=== PATIENT | male | born 1950 | race Caucasian/White ===

== ENCOUNTER 2016-07-10 07:31 | Emergency (ER) | payer OTHER ==
[~2016-07-10] VITALS: Ht 172.7 cm; Wt 95.0 kg
[~2016-07-10 07:31] MED LIST: AMLO1CAP15 PO; DOCU-144 PO; FINA5TAB4 PO; FLOMAX; GABA300C16 PO; HYDR-3498 PO; HYDR25TA6 PO; INSULIN SC; METF500T PO; OMEP40CA6 PO; ONDA-43 PO; SITA100T8 PO
[2016-07-10 07:33] VITALS: Ht 172.7 cm; Wt 95.0 kg
[2016-07-10] MEDS ORDERED: SOD CHLORIDE 0.9% 1,000 ML IV STA (07:57)
[2016-07-10] MEDS ORDERED: ONDANSETRON 4 MG INJ IV STA (07:57)
[2016-07-10] MEDS ORDERED: morphine 4 MG/ML VIAL IV STA (07:57)
--- NOTE | 2016-07-10 08:19 | RADRPT ---
PROCEDURE: XR Chest. CLINICAL INDICATION: Right-sided abdominal pain. TECHNIQUE: Single frontal chest x-ray. COMPARISON: Chest radiograph 12/13/2015. FINDINGS: The cardiomediastinal silhouette is unremarkable. Aortic atherosclerotic vascular calcifications are identified. Subsegmental atelectasis is noted in the left mid and lower lung zones. Eventration of the right he midiaphragm is noted. No pneumothorax, pleural effusion or consolidation is seen. No acute osseous abnormality is noted. IMPRESSION: 1. Subsegmental atelectasis is noted in the left mid and lower lung zones. 2. Aortic atherosclerosis. 3. Otherwise no acute cardiopulmonary abnormality. RPTAT: HH .Jo-Ann Jeffrey MD, MD Date Time Electronically viewed and signed by .Jo-Ann Jeffrey MD, on 07/10/2016 08:19 .N/
[2016-07-10 08:31] LABS: ALBUMIN 4.5 g/dl (3.3-4.9)
[2016-07-10 08:34] LABS: ALBUMIN/GLOBULIN RATIO 1.25; BILIRUBIN,INDIRECT 0.4 mg/dl (0-1.1); BILIRUBIN,TOTAL 0.4 mg/dl (0.2-1.3); CALCIUM 9.6 mg/dl (8.4-10.2); CREATININE 1.18 mg/dl (0.61-1.24); TOTAL PROTEIN 8.1 g/dl (6.1-8.1)
[2016-07-10 08:36] LABS: BASOPHILS % 0.3 % (0.0-2.0); EOSINOPHILS # 0.3 10^3/ul (0.0-0.5); EOSINOPHILS % 5.3 % (0.0-7.0); HEMATOCRIT 39.3 % (42.0-52.0); HEMOGLOBIN 13.7 g/dl (14.0-18.0); LYMPHOCYTES # 1.3 10^3/ul (0.8-2.9); MEAN CORPUSCULAR HEMOGLOBIN 29.4 pg (29.0-33.0); MEAN CORPUSCULAR HGB CONC 34.8 g/dl (32.0-37.0); MEAN CORPUSCULAR VOLUME 84.4 fl (82.0-101.0); MEAN PLATELET VOLUME 7.9 fl (7.4-10.4); MONOCYTE # 0.3 10^3/ul (0.3-0.9); MONOCYTES % 5.5 % (0.0-11.0); NEUTROPHIL # 3.8 10^3/ul (1.6-7.5); NEUTROPHILS % 65.9 % (39.0-77.0); PLATELET COUNT 210 10^3/UL (140-440); RED BLOOD COUNT 4.65 10^6/ul (4.70-6.10); RED CELL DISTRIBUTION WIDTH 15.2 % (11.5-14.5); UNCORRECTED WBC 5.8 10^3/ul (4.8-10.8); WHITE BLOOD COUNT 5.8 10^3/ul (4.8-10.8)
[2016-07-10 08:40] LABS: CONDITION 1; LH ANALYZER COMMENTS 1
[2016-07-10 08:48] LABS: ADD UMIC NO; URINE BILIRUBIN (Dip) NEGATIVE (NEGATIVE); URINE BLOOD (Dip) NEGATIVE (NEGATIVE); URINE COLOR LT. YELLOW (YELLOW); URINE GLUCOSE (Dip) NEGATIVE (NEGATIVE); URINE KETONES (Dip) NEGATIVE (NEGATIVE); URINE LEUKOCYTE ESTERASE (Dip) NEGATIVE (NEGATIVE); URINE NITRITE (Dip) NEGATIVE (NEGATIVE); URINE TOTAL PROTEIN (Dip) NEGATIVE (NEGATIVE); URINE UROBILINOGEN (Dip) 0.2 E.U./dL (0.1-1.0)
--- NOTE | 2016-07-10 08:50 | ERD ---
ER Documentation Chief Complaint Date/Time DATE: 07/10/16 TIME: 08:49 Chief Complaint R flank pain since last night; Hx of hernia surgery 01/2016 HPI 66-year-old male. [employer] use. Patient presents with right flank pain. The patient states that he had a hernia surgery in December or January of this past year and all of you. He states a prior nephrectomy on the right side 8 years ago. States that since he had his surgery in December or January he has had right flank pain radiating up to his right back. He only is seen his surgeon to have sutures removed but has not seen them symptoms. He denies any fevers or chills , no nausea vomiting or diarrhea. Pain is moderate to severe and constant. He denies any bowel or bladder incontinence and/or retention. ROS All systems reviewed and are negative except as per history of present illness. Medications Home Meds Active Scripts Ondansetron Hcl* (Zofran*) 4 Mg Tab, 4 MG PO Q6H Y for NAUSEA AND OR VOMITING for 1 Day, TAB Prov:JALEN WILKINS MD 12/15/15 Docusate Sodium* (Colace*) 100 Mg Capsule, 100 MG PO DAILY, #30 CAP Prov:JALEN WILKINS MD 12/15/15 Hydrocodone Bit/Acetaminophen (Anexsia 5-325 Mg Tablet) 1 Tab Tablet, 1 TAB PO Q4H Y for PAIN LEVEL 4-7 for 1 Day, TAB Prov:JALEN WILKINS MD 12/15/15 Reported Medications [Insulin] No Conflict Check, SC DAILY 11/11/15 Gabapentin* (Gabapentin*) 300 Mg Capsule, 300 MG PO BID, #60 CAP 11/11/15 Metformin Hcl (Glucophage) 500 Mg Tablet, 500 MG PO DAILY, #90 TAB 11/11/15 Omeprazole* (Omeprazole*) 40 Mg Capsule.dr, 40 MG PO QAM, #30 CAP 11/11/15 Finasteride* (Finasteride*) 5 Mg Tablet, 5 MG PO DAILY, TAB 11/11/15 Sitagliptin* (Januvia*) 100 Mg Tablet, 100 MG PO DAILY, #30 TAB 11/11/15 Amlodipine-Benazepril (Amlodipine-Benazepril) 10-40 Mg Capsule, 1 TAB PO DAILY, #30 TAB 11/11/15 [Flomax] No Conflict Check 04/05/13 Hydrochlorothiazide (Hydrochlorothiazide) 25 Mg Tablet, 25 MG PO 04/05/13 Allergies Allergies: Coded Allergies: No Known Allergy (Unverified , 11/11/15) PMhx/Soc History of Surgery: Yes (S/P VENTRAL HERNIA REPAIR 12-12-15) Anesthesia Reaction: No Hx Neurological Disorder: No Hx Respiratory Disorders: No Hx Cardiac Disorders: Yes (HTN) Hx Psychiatric Problems: No Hx Miscellaneous Medical Probl: Yes (HTN, DM, CKD STAGE III) Hx Alcohol Use: No Hx Substance Use: No Hx Tobacco Use: No Smoking Status: Never smoker Physical Exam Vitals Vital Signs Date Time Temp Pulse Resp B/P Pulse Ox O2 Delivery O2 Flow Rate FiO2 07/10/16 07:33 97.3 115 24 150/85 98 Physical Exam General: Well developed, well nourished, no acute distress Head: Normocephalic, atraumatic. Eyes: Pupils equally reactive, EOM intact ENT: Moist mucous membranes Neck: Supple, no lymphadenopathy Respiratory: Lungs clear bilaterally, no distress Cardiovascular: RRR, no murmurs, rubs, or gallops Abdominal: Soft, non-tender, non-distended, no peritoneal signs, right abdominal surgical scar is well-appearing, no obvious hernia : Deferred MSK: No edema, no unilateral swelling, 5/5 strength Neurologic: Alert and oriented, moving all extremities, normal speech, no focal weakness, no cerebellar signs Skin: No rash Psych: Normal mood Result Diagram: 07/10/16 0804 07/10/16 0804 Results 24 hrs Laboratory Tests Test 07/10/16 08:04 Alanine Aminotransferase (ALT/SGPT) 44IU/L Albumin 4.5g/dl Albumin/Globulin Ratio 1.25 Alkaline Phosphatase 60IU/L Anion Gap 19 Aspartate Amino Transf (AST/SGOT) 35IU/L Basophils # 0.010^3/ul Basophils % 0.3% Blood Morphology Comment Blood Urea Nitrogen 16mg/dl Calcium Level 9.6mg/dl Carbon Dioxide Level 27mmol/L Chloride Level 102mmol/L Creatinine 1.18mg/dl Direct Bilirubin 0.00mg/dl Eosinophils # 0.310^3/ul Eosinophils % 5.3% Globulin 3.60g/dl Glucose Level 173mg/dl Hematocrit 39.3% Hemoglobin 13.7g/dl Indirect Bilirubin 0.4mg/dl Lipase 178U/L Lymphocytes # 1.310^3/ul Lymphocytes % 23.0% Mean Corpuscular Hemoglobin 29.4pg Mean Corpuscular Hemoglobin Concent 34.8g/dl Mean Corpuscular Volume 84.4fl Mean Platelet Volume 7.9fl Monocytes # 0.310^3/ul Monocytes % 5.5% Neutrophils # 3.810^3/ul Neutrophils % 65.9% Nucleated Red Blood Cells # 0.010^3/ul Nucleated Red Blood Cells % 0.0/100WBC Platelet Count 23223^3/UL Potassium Level 4.0mmol/L Red Blood Count 4.6510^6/ul Red Cell Distribution Width 15.2% Sodium Level 144mmol/L Total Bilirubin 0.4mg/dl Total Protein 8.1g/dl Urine Bilirubin NEGATIVE Urine Clarity CLEAR Urine Color LT. YELLOW Urine Glucose NEGATIVE% Urine Hemoglobin NEGATIVE Urine Ketones NEGATIVE Urine Leukocyte Esterase NEGATIVE Urine Nitrite NEGATIVE Urine Specific [place] <=1.005 Urine Total Protein NEGATIVE Urine Urobilinogen 0.2 E.U./dL Urine pH 6.0 White Blood Count 5.810^3/ul Current Medications Medications (Trade) Dose Ordered Sig/Alberto Route PRN Reason Start Time Stop Time Status Last Admin Dose Admin Sodium Chloride (NS) 1,000 ml @ 1,000 mls/hr Q1H STAT IV 07/10/16 07:57 07/10/16 08:56 DC 07/10/16 08:17 Morphine Sulfate (morphine) 4 mg ONCE STAT IV 07/10/16 07:57 07/10/16 07:59 DC 07/10/16 08:17 Ondansetron HCl (Zofran Inj) 4 mg ONCE STAT IV 07/10/16 07:57 07/10/16 07:59 DC 07/10/16 08:17 Procedures/MDM EKG, MONITORS, & DIAGNOSTIC IMAGING: CT abdomen and pelvis IMPRESSION: 1. Mild atelectasis at the lung bases posteriorly. 2. Gallstones in the gallbladder. No evidence of cholecystitis. 3. Status post right nephrectomy. 4. Atherosclerosis. 5. Diverticulosis of the colon without evidence of diverticulitis. 6. Enlarged prostate. 7. Mild degenerative changes of the spine. Chest x-ray: I reviewed and interpreted a 1 view of the chest Mediastinum: No enlargement Cardiac silhouette: No cardiomegaly Airspace: Clear lung benoti bilaterally without evidence of pneumothorax Bones: No evidence of fracture LAB INTERPRETATION: No significant leukocytosis, no hepatobiliary obstruction MEDICAL DECISION MAKING: The patient has had at least 6 months of right-sided abdominal and back pain. Unclear etiology however it appears to be temporally related to the patient's surgical intervention. Consider possible nerve injury versus radiculopathy. No evidence of shingles. No signs or symptoms concerning for bowel obstruction , abscess or acute testicular process. Using an stop attacher, I attempted to explain to the patient that he needs to follow-up with his primary care physician as well as the surgeon who performed the surgery. I may not have an answer for him this evening given the chronicity of his symptoms. We will attempt to rule out acute life-threatening causes of his pain. ER COURSE: The patient's laboratory testing and diagnostic imaging is unrevealing at this time. The patient will be referred to his primary care physician. He was also advised to follow-up at all of you with his surgeon. Return precautions for fevers or worsening pain was discussed. Patient may benefit from MRI imaging if symptoms persist. No evidence of cauda equina or cord compression. I kept the patient and/or family informed of laboratory and diagnostic imaging results throughout the emergency room course. DISPOSITION PLAN: We discussed follow up with the patient's primary care doctor within 24 to 48 hours as needed. We also discussed return to the emergency room for worsening symptoms or worsening condition. Discharge Medications: [place], Zofran We discussed the use of narcotics including avoidance of operating heavy machinery and driving as well as its addictive properties. Departure Diagnosis: Primary Impression: Right flank pain Additional Impression: Right lower quadrant abdominal pain Condition: SHANEL Brown MD Jul 10, 2016 08:50
--- NOTE | 2016-07-10 09:24 | RADRPT ---
PROCEDURE: CT Abdomen and Pelvis without contrast. CLINICAL INDICATION: Abdominal and pelvic pain. Right flank pain. History of right nephrectomy. TECHNIQUE: CT scan of the abdomen and pelvis without contrast was performed. Coronal and sagittal reformatted images were obtained from the axial source images. Images were reviewed on a high-resolu [employer] PACS workstation. Total exam DLP is 1323.15 mGy-cm. CTDIvol is 19.26 mGy. One or more of the following dose reduction techniques were used: Automated exposure control, adjustment of the mA and/ or kV according to patient size, use of iterative reconstruction technique. COMPARISON: CT scan of the abdomen and pelvis dated 04/09/2015. FINDINGS: There is mild atelectasis at both lung bases posteriorly. The lung bases are otherwise normal. The heart size is normal. There is no pleural effusion or pericardial effusion. The liver is normal in size and attenuation. There is no focal hepatic lesion. Gallstones are present in the gallbladder. There is no evidence of cholecystitis. The bile ducts a re normal. The spleen is normal in size. There is no focal splenic lesion. Both adrenals are normal with no enlargement or mass. The pancreas is unremarkable with no mass or evidence of pancreatitis. The right kidney is surgically absent with surgical clips noted in the right renal bed. There is no mass or fluid collection at this site. The left kidney is normal with no hydronephrosis, mass, or calculus. The left ureter is also normal with no dilatation or calculus. The abdominal aorta is not dilated. There is calcification in the aorta consistent with atheroscler osis. There is no retroperitoneal lymphadenopathy or mass. There is no pelvic lymphadenopathy or mass. The bladder is unremarkable. The prostate is enlarged. The periappendiceal region is unremarkable with no evidence of appendicitis. The appendix is well se en and appears unremarkable. There is diverticulosis of the colon without evidence of diverticulitis. The bowel and mesentery ar e otherwise normal. There is no free fluid or free gas. There are mild degenerative changes of the spine. There is no fracture or lytic lesion. IMPRESSION: 1. Mild atelectasis at the lung bases posteriorly. 2. Gallstones in the gallbladder. No evidence of cholecystitis. 3. Status post right nephrectomy. 4. Atherosclerosis. 5. Diverticulosis of the colon without evidence of diverticulitis. 6. Enlarged prostate. 7. Mild degenerative changes of the spine. RPTAT: QQ .Denny Holly MD, Date Time Electronically viewed and signed by .Denny Holly MD, on 07/10/2016 09:23 .R/
[2016-07-10] MEDS ORDERED: HYDR-902 PO (09:37)
[2016-07-10] MEDS ORDERED: ONDA4TAB14 PO (09:37)
[2016-07-10 09:49] VITALS: BP 117/82; PULSE 74; RESP 20; TEMP 98
== END 2016-07-10 09:52 | disposition home or self-care (01) ==
LOC: E/R 07:31
DX: R10.9 Unspecified abdominal pain (principal); R10.31 Right lower quadrant pain; I12.9 Hypertensive chronic kidney disease with stage 1 through stage 4 chronic kidney disease, or unspecified chronic kidney disease; N18.3 Chronic kidney disease, stage 3 (moderate); E11.9 Type 2 diabetes mellitus without complications; Z79.84 Long term (current) use of oral hypoglycemic drugs
CPT/HCPCS: 36415; 71010; 74176; 80053; 81003; 83690; 85025; 96374; 96375; 99285; J2270; J2405; J7030

== ENCOUNTER 2016-07-28 12:36 | Outpatient (CLI) | payer OTHER ==
[~2016-07-28] VITALS: Ht 177.8 cm; Wt 95.5 kg
[~2016-07-28 12:36] MED LIST changes: +HYDR-902 PO; +ONDA4TAB14 PO
[2016-07-28 13:07] VITALS: BP 124/65; PULSE 75; RESP 18; Ht 177.8 cm; Wt 95.5 kg
[2016-07-28] MEDS ORDERED: TAMS0.4C2 PO (13:14)
[2016-07-28] MEDS ORDERED: AMLO1CAP2 PO (13:14)
[2016-07-28] MEDS ORDERED: CALC-42 PO (13:14)
--- NOTE | 2016-07-28 16:37 | CONS ---
DATE OF ADMISSION: 07/28/2016 DATE OF CONSULTATION: 07/28/2016 [facility] SUBSEQUENT OUTPATIENT CONSULTATION PLACE OF SERVICE: [facility] DATE: 07/28/2016. Dear Dr. Banks: Thank you very much for allowing us to remain involved in the care of Mr. Irving Nicolas. HISTORY OF PRESENT ILLNESS: The patient is a very pleasant 66-year-old gentleman well known to me from our initial visit with him as early July 2015 for treatment of a large right-sided flank hernia that he eventually had a repair for in December 2015 with subsequent followup visits with me. This was in conjunction with Dr. Balderrama who had originally seen him for surgical issues. He also has comorbidities that are multiple and include hypertension, prior kidney disease requiring surgery that led to the hernia on the right side, diabetes, history of rectal bleeding and a number of other issues. He was noted to have cholelithiasis that may have been symptomatic, but because of the use of mesh during his hernia repair we elected not to take his gallbladder out in order to minimize chance of infection. I had talked to him and family about possibly removing the gallbladder at a later time if the pain persisted. The patient continues to have vague abdominal pain, some of which can be explained by the incisional hernia that he had on the right side and the presence of current mesh and his relatively recent repair. Some of his pain; however, could come from his gallbladder and for this reason, he was sent to us for reevaluation. Note that he was recently evaluated at an emergency department at [facility] for pain and a CT scan of the abdomen and pelvis was done which showed presence of stone in the gallbladder and recommendation was made for the patient to arrange for an outpatient evaluation. That is the reason why the patient is here. Incidentally, the right incisional hernia repair is holding very well and there is no evidence of any recurrence. I had a chance to meet the patient today and reviewed his history and physical, again completely. He does not have any other major complaints than stated above. No major issues with appetite or weight loss, difficulty with breathing or swallowing, issues with blood in the stool or urine or other major problems. PAST MEDICAL HISTORY: 1. Incisional hernia from a right nephrectomy, status post repair 12/12/2015 with mesh. 2. Hypertension. 3. Diabetes mellitus. 4. History of rectal bleeding. 5. History of small sigmoid colon polyp removed 04/05/2013 which was benign. 6. Internal hemorrhoids. 7. Arthritis. 8. History of left-sided chest pain evaluated 03/07/2011 at [facility]. 9. History of renal insufficiency. 10. BMI 30.2, (previously 29.9 in July 2015). PAST SURGICAL HISTORY: 1. Status post right nephrectomy with possible renal cell carcinoma leading to complication of an incisional hernia that was repaired subsequently as above. 2. Colonoscopy with polyp removal as above 03/27/2011. ALLERGIES: NO KNOWN DRUG ALLERGIES. MEDICATIONS: The patient has been on: 1. Januvia. 2. Tamsulosin. 3. Hydrochlorothiazide. 4. Amlodipine. 5. An updated list shows addition of Vitamin D. 6. Calcium tablets. 7. Gabapentin. SOCIAL HISTORY: The patient lives with his family and does not report any smoking, drinking, or intravenous drug use. FAMILY HISTORY: Other than diabetes and hypertension. There are no other significant medical, surgical or oncologic issues in the family as reported by the patient or reflected in his chart. REVIEW OF SYSTEMS: Other than the above-mentioned, there are no other pertinent positives or pertinent negatives in a complete 14-point review of systems. PHYSICAL EXAMINATION: GENERAL: The patient appears to be a very pleasant gentleman of descent, appearing stated age, sitting in a chair comfortably and in no acute distress. VITAL SIGNS: Stable with the exception of slightly high blood pressure at 124/ 65. He is afebrile and his BMI is 30.2. HEENT: Normocephalic and atraumatic. Extraocular muscles and hearing are grossly intact bilaterally and symmetrically. Sclerae are nonicteric. Oral cavity is clear; oral mucosa appeared to be pink and moist. Dentition: fair. NECK: Supple. There is no lymphadenopathy or JVD. There is no submental, submandibular or supraclavicular lymphadenopathy. CHEST: Rises symmetrically with each breath; patient is breathing comfortably. There are no audible wheezes, rales or rhonchi on the gross exam. HEART: HPulse is regular and palpable on the *right wrist. Capillary refill was normal. Carotid pulses are palpable bilaterally and symmetrically in the neck. EXTREMITIES: Lower extremities contain no pitting edema around the ankles bilaterally and symmetrically. ABDOMEN: Soft, nontender and nondistended. There is some mild tenderness in the right flank area near the most lateral corner of the incision. He has no evidence of recurrence of hernia. There is mild discomfort in the right upper quadrant and minimal discomfort in other quadrants as well. SKIN: Appears to be pink and feels warm to touch. NEUROLOGIC: Awake, alert, and follows commands appropriately. LABORATORY DATA: Dated 07/10/2016 shows normal CBC with platelet count 210. Electrolytes were also normal. Albumin 4.5, lipase 178. CO2 27, creatinine 1.18. IMAGING: CT scan of abdomen and pelvis 07/10/2016 showed above-mentioned findings without other pertinent points. ASSESSMENT AND PLAN: A very pleasant 66-year-old gentleman with multiple issues including BMI of 31.8 and prior right nephrectomy for possible renal cell carcinoma that then was complicated by an incisional hernia that was repaired 07/2015 with an open approach and mesh, diabetes mellitus, hypertension , and a number of other medical problems who shows signs of abdominal pain, which is likely multifactorial. Certainly part of his pain is due to his incisional hernia repair as these flank incisions and repairs typically generate chronic pain syndromes that could last up to a few years at that time. Fortunately, there is no evidence of any hernia or any other major difficulty , including infection in this region and I therefore do not see any indication for surgical intervention for that. Otherwise, the patient's pain could also come from his gallbladder with a known stone and biliary colic symptoms. I believe that we can perform this operation with reasonably the low risk and for this reason, we could eliminate this from the clinical picture and help further delineate the patient's abdominal pain symptoms. I do not see a need for further workup including endoscopy, and I believe that at this point it would be safe for us to perform this operation. I explained the operation in detail including the risks, benefits and alternatives, and obtained the patient's permission to do the operation. I answered all the patient's and 's questions to the best of my ability and I believe that they understand and wished to proceed. Towards the end of the visit the patient noted that he had recently been having issues with a testicular mass and this was news to me and for this reason, I recommended that we have the patient followup with a urologist as well to get a better understanding of whether he needs any further workup or further coordination of care, perhaps to do the surgeries in a combined fashion. I answered all the patient's questions to the best of my ability and answered his 's questions as well. I believe that they both understand and wished to proceed. With above assessment I have recommended the followin. Preoperative history and physical. 2. Urology consultation regarding testicular mass. 3. Appropriate coordination between urology and general surgery if needed. 4. To the operating room for laparoscopic, possible open cholecystectomy in the next few weeks on an elective basis. Thank you again for allowing us to remain in the care of this very pleasant gentleman and his wonderful family. If there are any questions, please feel free to call me at [phone]. TOTAL VISIT TIME: 45 minutes of which more than half was spent in [id number] discussion with the patient as well as coordination of care between multiple physicians and providers. Dictated By: COREY VILLARREAL/YOLY Conf#: [id number] DID#: [id number] CC: NOEL BANKS MD; MAYI MURRAY MD; GALDINO BALDERRAMA MD; RUTH ANN JHA MD;* EndCC* MTDD
== END 2016-07-28 16:27 | disposition home or self-care (01) ==
LOC: HPC 12:36
PROVIDERS: ATTEND Transplant Surgery
DX: K43.2 Incisional hernia without obstruction or gangrene (principal); K80.20 Calculus of gallbladder without cholecystitis without obstruction; E11.9 Type 2 diabetes mellitus without complications; I10 Essential (primary) hypertension; N50.9 Disorder of male genital organs, unspecified
CPT/HCPCS: G0463

== ENCOUNTER 2016-08-13 06:51 | Day surgery (SDC) | payer OTHER ==
[~2016-08-13] VITALS: Ht 175.3 cm; Wt 90.3 kg
[~2016-08-13 06:51] MED LIST changes: -AMLO1CAP15 PO; +AMLO1CAP2 PO; +CALC-42 PO; -DOCU-144 PO; -FINA5TAB4 PO; -FLOMAX; -HYDR-3498 PO; -HYDR-902 PO; -INSULIN SC; -OMEP40CA6 PO; -ONDA-43 PO; -ONDA4TAB14 PO; +TAMS0.4C2 PO
[2016-08-13] MEDS ORDERED: ACET-141 PO (07:37)
[2016-08-13 07:41] VITALS: Ht 175.3 cm; Wt 90.3 kg
[2016-08-13] MEDS ORDERED: EPHEDrine SULFATE 50 MG/5 ML SYG ONE (08:39)
[2016-08-13] MEDS ORDERED: PROPOFOL 40 ML ONE (08:39)
[2016-08-13] MEDS ORDERED: MIDAZOLAM 1 MG/ML 2 ML INJ ONE ×2 (08:39)
[2016-08-13 08:41] VITALS: BP 118/68; PULSE 82; RESP 18
[2016-08-13 09:55] VITALS: BP 116/75; PULSE 68; RESP 15
--- NOTE | 2016-08-13 11:01 | GILP ---
DATE OF PROCEDURE: NAME OF PROCEDURES: Colonoscopy and biopsy. SURGEON: Garth Rivera MD PREOPERATIVE DIAGNOSIS: Change in bowel habit. POSTOPERATIVE DIAGNOSES 1. Colonoscopy all the way to the cecum. 2. Three small colon polyps were removed using the biopsy forceps. 3. Internal hemorrhoids. INDICATION FOR THE PROCEDURE: Mr. Irving Pearce is a 66-year-old male patient who had change in the bowel habit. The patient had colonoscopy before but the exam was very suboptimal simone use of the poor preparation, so the patient was rescheduled for repeat colonoscopy. The procedure and possible complications were well explained to the patient. The patient understood and consented to the procedure. DESCRIPTION OF PROCEDURE: Under the influence of anesthesia, the colonoscope was carefully introduc ed in the rectum and under direct vision, it was advanced all the way to the cecum. FINDINGS: The patient had 3 small colon polyps, one in the sigmoid colon, another 2 in the rectum a nd they were removed using the biopsy forceps. The patient was noted to have internal hemorrhoids. He tolerated the procedure very well and there was no complication from the procedure. At the end o f the procedure, he was awake with stable vital signs and he was discharged home to the care of his family. IMPRESSION: 1. Colonoscopy all the way to the cecum. 2. Three small colon polyps were removed using the biopsy forceps. 3. Internal hemorrhoids. PLAN: 1. Await histopathology report. 2. Next screening colonoscopy in 5 years. Dictated By: GARTH BEAL/YOLY Conf#: [id number] DID#: [id number]
== END 2016-08-13 10:15 | disposition home or self-care (01) ==
LOC: GIL 06:51
PROVIDERS: ATTEND Internal Medicine Gastroenterology
DX: R19.4 Change in bowel habit (principal); D12.5 Benign neoplasm of sigmoid colon; K64.8 Other hemorrhoids; I10 Essential (primary) hypertension; E11.9 Type 2 diabetes mellitus without complications
CPT/HCPCS: 45380; 82962; 88305; J2250

== ENCOUNTER 2016-09-23 06:45 | Day surgery (SDC) | payer OTHER ==
[2016-09-22 16:00] VITALS: Ht 177.8 cm; Wt 93.0 kg
[~2016-09-23] VITALS: Ht 177.8 cm; Wt 93.0 kg
[2016-09-23] VITALS (17 sets, daily range): BP systolic 96–135; BP diastolic 64–75; PULSE 62–88; RESP 14–21
[~2016-09-23 06:45] MED LIST changes: +ACET-141 PO; -TAMS0.4C2 PO
[2016-09-23] MEDS ORDERED: D5W-0.45 NACL + KCL 20 MEQ 1,000 ML IV SCH (07:00)
[2016-09-23] MEDS ORDERED: AMPICILLIN/SULB 3 GM/NS (PMX) 100 ML IVPB ONE (07:00)
[2016-09-23] MEDS ORDERED: BUPIVACAINE 0.25% (MPF) 30 ML INJ ONE (08:29)
[2016-09-23] MEDS ORDERED: BUPIVACAINE 0.25%/EPI (SDV) 30 ML INJ INJ ONE (09:15)
[2016-09-23] MEDS ORDERED: BUPIVACAINE 0.25%/EPI (SDV) 30 ML INJ ONE (09:16)
[2016-09-23] MEDS ORDERED: ROCURONIUM 50 MG INJ ONE (09:22)
[2016-09-23] MEDS ORDERED: CEFAZOLIN 1 GM INJ ONE (09:22)
[2016-09-23] MEDS ORDERED: LIDOCAINE 2% (SDV) 5 ML INJ ONE (09:22)
[2016-09-23] MEDS ORDERED: PROPOFOL 20 ML ONE (09:22)
[2016-09-23] MEDS ORDERED: FENTAnyl 50 MCG/ML VIAL ONE (09:23)
[2016-09-23] MEDS ORDERED: ACETAMINOPHEN 1000MG/100ML IV 100 ML ONE (09:24)
[2016-09-23] MEDS ORDERED: INSULIN ASPART [NOVOLOG] 3 ML PEN SC ONE (09:30)
[2016-09-23] MEDS ORDERED: ONDANSETRON 4 MG INJ IV PRN (09:30)
[2016-09-23] MEDS ORDERED: MEPERIDINE 25 MG INJ IV PRN (09:30)
[2016-09-23] MEDS ORDERED: EPHEDrine SULFATE 50 MG/5 ML SYG IV PRN (09:30)
[2016-09-23] MEDS ORDERED: hydrALAzine 20 MG INJ IV PRN (09:30)
[2016-09-23] MEDS ORDERED: HYDROmorphONE (0.2 MG/ML) 10ML SYG IV PRN ×3 (09:30)
[2016-09-23] MEDS ORDERED: LABETALOL HCL 20MG INJ IV PRN (09:30)
[2016-09-23] MEDS ORDERED: FENTAnyl 50 MCG/ML VIAL IV PRN ×3 (09:30)
--- NOTE | 2016-09-23 09:51 | HPN ---
Date/Time of Note Date/Time of Note DATE: 09/23/16 TIME: 09:51 Interval H&P Admission Note Pt. seen H&P reviewed: No system changes Pt. seen H&P reviewed. No system changes (I attest that I have seen and examined the patient and reviewed the operation in detail, as well as its risks , benefits and alternatives of the operation). I attest that I have seen and examined the patient and reviewed in detail the operation, and its associated risks, benefits and alternative. I have answered all the patient's questions to the best of my ability and the patient wishes to proceed. Please refer to rest of electronic medical record for additional updates. COREY ALVARADO M.D. Sep 23, 2016 09:51
[2016-09-23] MEDS ORDERED: DEXTROSE 50% 50 ML SYRINGE IV PRN ×2 (10:00)
[2016-09-23] MEDS ORDERED: GLUCAGON 1 MG INJ IM PRN (10:00)
[2016-09-23] MEDS ORDERED: GLUCOSE GEL 15 GRAM TUBE BUCCAL PRN (10:00)
[2016-09-23] MEDS ORDERED: GLUCOSE GEL 15 GRAM TUBE PO PRN ×2 (10:00)
[2016-09-23] MEDS ORDERED: PHENYLephrine (100 MCG/ML) 5ML SYG ONE (10:05)
[2016-09-23] MEDS ORDERED: LABETALOL HCL 20MG INJ ONE (10:35)
[2016-09-23] MEDS ORDERED: DEXAMETHASONE 4 MG/ML 1 ML INJ ONE (11:16)
[2016-09-23] MEDS ORDERED: GLYCOPYRROLATE 0.4 MG INJ ONE (11:18)
[2016-09-23] MEDS ORDERED: NEOSTIGMINE 3 MG/3 ML SYRINGE ONE (11:18)
[2016-09-23] MEDS ORDERED: DOCUSATE SODIUM 100 MG CAP PO PRN (12:00)
[2016-09-23] MEDS ORDERED: HYDROCODONE/APAP (5/325) TAB PO PRN ×2 (12:00)
[2016-09-23] MEDS ORDERED: BISACODYL 10 MG SUPP PR PRN (12:00)
--- NOTE | 2016-09-23 12:04 | OPR ---
Date/Time of Note Date/Time of Note DATE: 09/23/16 TIME: 12:03 Operative Report Operative\Procedure Findings [facility] INPATIENT OPERATIVE NOTE PLACE OF SERVICE: [facility] DATE OF SURGERY: 09/23/2016 PREOPERATIVE DIAGNOSIS: 1. Symptomatic cholelithiasis 2. Hypertension. 3. Diabetes mellitus. 4. History of rectal bleeding. 5. History of small sigmoid colon polyp removed 04/05/2013 which was benign. 6. Internal hemorrhoids. 7. Arthritis. 8. History of left-sided chest pain evaluated 03/07/2011 at [facility]. 9. History of renal insufficiency. 10. BMI 30.2, (previously 29.9 in July 2015). 11. Status post right nephrectomy with possible renal cell carcinoma leading to complication of an incisional hernia, status post repair 12/12/2015 with mesh. 12. Colonoscopy with polyp removal as above 03/27/2011. POSTOPERATIVE DIAGNOSIS: 1. Symptomatic cholelithiasis with chronic cholecystitis 2. Hypertension. 3. Diabetes mellitus. 4. History of rectal bleeding. 5. History of small sigmoid colon polyp removed 04/05/2013 which was benign. 6. Internal hemorrhoids. 7. Arthritis. 8. History of left-sided chest pain evaluated 03/07/2011 at [facility]. 9. History of renal insufficiency. 10. BMI 30.2, (previously 29.9 in July 2015). 11. Status post right nephrectomy with possible renal cell carcinoma leading to complication of an incisional hernia, status post repair 12/12/2015 with mesh. 12. Colonoscopy with polyp removal as above 03/27/2011. OPERATION: 1. Laparoscopic cholecystectomy SURGEON: Corey Alvarado M.D. BAR MACHINE OPERATOR MULTIPLE SPINDLE: None ANESTHESIA: General endotracheal tube anesthesia ANESTHESIOLOGIST: Rhonda Liu M.D. BRIEF SUMMARY: An otherwise uncomplicated laparoscopic cholecystectomy was performed with findings of chronic cholecystitis and cholelithiasis. Updated Clinical Summary: The patient is a very pleasant 66-year-old gentleman well known to me from our initial visit with him as early July 2015 for treatment of a large right- sided flank hernia that he eventually had a repair for in December 2015 with subsequent followup visits with me. This was in conjunction with Dr. Landeros who had originally seen him for surgical issues. He also has comorbidities that are multiple and include hypertension, prior kidney disease requiring surgery that led to the hernia on the right side, diabetes, history of rectal bleeding and a number of other issues. He was noted to have cholelithiasis that may have been symptomatic, but because of the use of mesh during his hernia repair we elected not to take his gallbladder out in order to minimize chance of infection. I had talked to him and family about possibly removing the gallbladder at a later time if the pain persisted. The patient continues to have vague abdominal pain, some of which can be explained by the incisional hernia that he had on the right side and the presence of current mesh and his relatively recent repair. Some of his pain; however, could come from his gallbladder and for this reason, he was sent to us for reevaluation. Note that he was recently evaluated at an emergency department at [facility] for pain and a CT scan of the abdomen and pelvis was done which showed presence of stone in the gallbladder and recommendation was made for the patient to arrange for an outpatient evaluation. Incidentally, the right incisional hernia repair is holding very well and there is no evidence of any recurrence. Comorbidities: 1. Incisional hernia from a right nephrectomy, status post repair 12/12/2015 with mesh. 2. Hypertension. 3. Diabetes mellitus. 4. History of rectal bleeding. 5. History of small sigmoid colon polyp removed 04/05/2013 which was benign. 6. Internal hemorrhoids. 7. Arthritis. 8. History of left-sided chest pain evaluated 03/07/2011 at [facility]. 9. History of renal insufficiency. 10. BMI 30.2, (previously 29.9 in July 2015). 11. Status post right nephrectomy with possible renal cell carcinoma leading to complication of an incisional hernia that was repaired subsequently as above. 12. Colonoscopy with polyp removal as above 03/27/2011. BRIEF HISTORY: The patient is a very pleasant 66-year-old gentleman with abdominal pain that was thought to be due to symptomatic cholelithiasis (please see above). I met with the patient and family and counseled them regarding the possible options of treatment, and I strongly suggested a laparoscopic, possible open cholecystectomy. We reviewed the operation in detail as well as the risks, benefits, alternatives, and expected outcomes of this operation. After careful consideration of all the risks, benefits, and alternatives, the patient and family appeared to understand those risks and wished to proceed with surgery. For a detailed report of my consultation with patient and family, please refer to my separate consultation note. STATEMENT OF THE INFORMED CONSENT: The patient and family appeared to understand the risks of the operation to include, but not be limited to risk of postoperative pain and scar tissue, possible infection or bleeding requiring other interventions such as opening the wound, placement of drainage catheters, or other operative interventions; possible injury to surrounding to structures including bowel, bladder, bile duct, or blood vessels, or solid organs such as liver, kidney, or pancreas requiring other interventions or procedures; possible leakage of bile from surgical clip sites, suture lines, or worse, from common bile duct injury, causing significant increase in morbidity and mortality and requiring multiple interventions including but not limited to, placement of drainage catheters, imaging studies, as well as operative interventions; possible other source of sepsis such as urinary tract infections or pneumonias, or other sources of potentially life threatening problems such as deep venous thrombus formation causing pulmonary embolism, myocardial arrhythmias and infarctions, and even . After careful consideration of all their options, the patient and family appeared to understand and wished to proceed with surgery. DESCRIPTION OF PROCEDURE: After obtaining informed consent, the patient was brought into the operating room and was placed in a normal supine position, where successful general endotracheal tube anesthesia was performed. The patient 's abdominal skin was prepped and draped, from the nipple line down to the level of the groins, in the usual sterile fashion. Intravenous access was already in place, and appropriately chosen and dosed prophylactic intravenous antimicrobials were administered. We then called a surgical time-out where patient's identification, date of , nature of the operation, allergies, presence of intravenous antimicrobials, presence of needed equipment, and any other concerns were reviewed and agreed upon by all members of the operating room team. We then started the operation by placing a 5-mm skin incision in the right- upper quadrant, subcostal midclavicular line, and introduced a 5-mm [employer] trocar into the peritoneal space, visualizing all the layers of the abdominal wall as we entered. Note that there was no indication of any injury to underlying structures once we entered the peritoneum. We insufflated the abdominal cavity to a maximum pressure of 15 mmHg, again, confirmed lack of any injury to underlying structures prior to visualizing the rest of the abdominal cavity. We found the fundus of the gallbladder to be visible. There was no evidence of malignancy. No evidence of calcifications, but there was significant omental adhesions onto the body of the gallbladder in the right upper quadrant. The liver appeared to be healthy. With this information, we went a head and placed the other trocars under direct visualization, after injecting their sites with 0.25% Marcaine with epinephrine , placing a 5-mm trocar in the umbilical midline area, a 5-mm trocar in the right anterior axillary line, and a 12-mm trocar in the midline subxiphoid region. With our instruments in place, we had excellent visualization and access to the right-upper quadrant. We then we grasped the fundus of the gallbladder and pointed up towards the right-upper quadrant. The omental adhesions onto the body of the gallbladder as well as the infundibulum were taken down with judicious use of cautery, as well as meticulous blunt dissection. We were then able to grasp the infundibulum and pull it out in order to expose the critical triangle of Calot. We then placed our usual serosal cuts along the long axis of the gallbladder 1 cm away from its attachment to the liver bed up towards the fundus, and then joined these 2 lines under the infundibulum, taking care not to deliver any energy to underlying structures. Due to significant amount of intra-abdominal adipose tissue and some swelling in the triangle of Calot, we decided to maximize the degree of safety of the operation by taking the gallbladder top- down which we accomplished with the use of cautery. We then performed meticulous dissection to identify and circumferentially isolate both the cystic duct and cystic artery, prior to transecting them between 2 surgical Endoclips, proximally and one distally on the cystic artery and 3 surgical endoclips proximally and one distally on the cystic duct, transecting both using cold scissors, and only after making sure that these were the only 2 structures going into the gallbladder. We then delivered the gallbladder out inside of an EndoCatch bag through the 12-mm trocar site without enlarging the fascia or contaminating the wound. The gallbladder was sent to Pathology for evaluation. Several large and small stones were removed from the gallbladder and sent with the final specimen. Returning to the abdominal cavity, we ensured that there was adequate hemostasis and bile-stasis prior to removal of all of or equipment, including the pneumoperitoneum, and then reapproximating the 12-mm trocar site with one [id number] 0 Vicryl suture, followed by washing the wounds with copious amounts of normal saline, and then reapproximating the skin using interrupted 4- 0 Monocryl sutures. Light dressing was then applied. At the end of the operation, both the sponge count and needle count were reportedly correct x2. The patient tolerated the procedure without any reported complications. ESTIMATED BLOOD LOSS: 30 mL BLOOD OR BLOOD PRODUCT TRANSFUSIONS: None to my knowledge. SPECIMENS: 1. Gallbladder COMPLICATIONS: None. DISPOSITION: Recovery area. Disclaimer: Inadvertent spelling and grammatical errors are likely due to EHR/ dictation software use and do not reflect on the quality of delivered patient care. COREY ALVARADO M.D. Sep 23, 2016 12:04
== END 2016-09-23 14:17 | disposition home or self-care (01) ==
LOC: SDS 06:45
PROVIDERS: ATTEND Transplant Surgery
DX: K80.10 Calculus of gallbladder with chronic cholecystitis without obstruction (principal); I10 Essential (primary) hypertension; E11.9 Type 2 diabetes mellitus without complications; K64.8 Other hemorrhoids; M19.90 Unspecified osteoarthritis, unspecified site; Z86.010 Personal history of colon polyps; E66.9 Obesity, unspecified; Z68.29 Body mass index [BMI] 29.0-29.9, adult; Z79.84 Long term (current) use of oral hypoglycemic drugs
CPT/HCPCS: 47562; 82962; 88304; J0131; J0295; J0690; J1100; J1815; J2175; J2405; J3010; J2370; J2710

== ENCOUNTER 2016-09-24 22:50 | Emergency (ER) | payer OTHER ==
[~2016-09-24] VITALS: Ht 167.6 cm; Wt 96.0 kg
[2016-09-24 22:57] VITALS: Ht 167.6 cm; Wt 96.0 kg
[2016-09-24 23:46] LABS: URINE BLOOD (Dip) POC Negative (NEGATIVE)
[2016-09-25 01:05] LABS: ADD SCAN DIFF NO
[2016-09-25 01:07] LABS: BASOPHILS % 0.3 % (0.0-2.0); EOSINOPHILS % 0.3 % (0.0-7.0); HEMATOCRIT 34.8 % (42.0-52.0); HEMOGLOBIN 12.1 g/dl (14.0-18.0); LYMPHOCYTES # 1.4 10^3/ul (0.8-2.9); LYMPHOCYTES % 12.5 % (15.0-51.0); MEAN CORPUSCULAR HEMOGLOBIN 29.2 pg (29.0-33.0); MEAN CORPUSCULAR HGB CONC 34.8 g/dl (32.0-37.0); MEAN CORPUSCULAR VOLUME 83.9 fl (82.0-101.0); MEAN PLATELET VOLUME 9.9 fl (7.4-10.4); MONOCYTE # 0.6 10^3/ul (0.3-0.9); MONOCYTES % 5.6 % (0.0-11.0); NEUTROPHIL # 9.2 10^3/ul (1.6-7.5); NEUTROPHILS % 80.2 % (39.0-77.0); PLATELET COUNT 247 10^3/UL (140-415); RED BLOOD COUNT 4.15 10^6/ul (4.70-6.10); RED CELL DISTRIBUTION WIDTH 13.7 % (11.5-14.5); WHITE BLOOD COUNT 11.5 10^3/ul (4.8-10.8)
[2016-09-25 01:20] LABS: ALBUMIN 4.4 g/dl (3.3-4.9)
[2016-09-25 01:21] LABS: POTASSIUM 4.1 mmol/L (3.5-5.1)
[2016-09-25 01:23] LABS: ALBUMIN/GLOBULIN RATIO 1.46; BILIRUBIN,INDIRECT 0.3 mg/dl (0-1.1); BILIRUBIN,TOTAL 0.3 mg/dl (0.2-1.3); CREATININE 1.12 mg/dl (0.61-1.24); TOTAL PROTEIN 7.4 g/dl (6.1-8.1)
[2016-09-25 01:24] LABS: CALCIUM 8.9 mg/dl (8.4-10.2)
[2016-09-25] MEDS ORDERED: TAMS-14 PO (02:08)
[2016-09-25 02:36] VITALS: BP 134/82; PULSE 89; RESP 16
--- NOTE | 2016-09-25 04:02 | ERA ---
ER Documentation Chief Complaint Date/Time DATE: 09/25/16 Chief Complaint unable to urinate- urinary retention HPI The patient is an 66-year-old male, presenting to the ER because of inability to void for 1 day. He had laparoscopic cholecystectomy yesterday. He denies similar symptoms previously. He complains of constipation, denies fever, chills , neck pain, chest pain, dyspnea, abdominal pain, vomiting. He does not smoke or drink Past medical history: Hypertension, diabetes mellitus Past surgical history: Right nephrectomy, ventral herniorrhaphy ROS All systems reviewed and are negative except as per history of present illness. Medications Home Meds Active Scripts Tamsulosin Hcl* (Flomax*) 0.4 Mg Cap.er.24h, 0.4 MG PO QPM, #15 CAP Prov:JEFFERY KAUFMAN MD 09/25/16 Reported Medications Acetaminophen* (Acetaminophen*) 500 MG Extra Strength Tablet, 500 MG PO Q4H Y for PAIN AND OR ELEVATED TEMP, TAB 08/13/16 Amlodipine Besylate/Benazepril (Lotrel 10-40 mg Capsule) 1 Each Capsule, 1 EACH PO, CAP 07/28/16 Calcium Carbonate-Vitamin D3 (Calcium 500 + Vit D 400 Tablet) 1 Each Tablet, 1 TAB PO BID, TAB 07/28/16 Gabapentin* (Gabapentin*) 300 Mg Capsule, 300 MG PO BID, #60 CAP 11/11/15 Metformin Hcl (Glucophage) 500 Mg Tablet, 500 MG PO DAILY, #90 TAB 11/11/15 Sitagliptin* (Januvia*) 100 Mg Tablet, 100 MG PO DAILY, #30 TAB 11/11/15 Hydrochlorothiazide (Hydrochlorothiazide) 25 Mg Tablet, 25 MG PO 04/05/13 Allergies Allergies: Coded Allergies: No Known Allergy (Unverified , 09/22/16) PMhx/Soc History of Surgery: Yes (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, HERNIA) Anesthesia Reaction: No Hx Neurological Disorder: No Hx Respiratory Disorders: No Hx Cardiac Disorders: Yes (HTN) Hx Psychiatric Problems: No Hx Miscellaneous Medical Probl: Yes (HX RIGHT KIDNEY CANCER--REMOVED 2007) Hx Alcohol Use: No Hx Substance Use: No Hx Tobacco Use: No Smoking Status: Never smoker Physical Exam Vitals Vital Signs Date Time Temp Pulse Resp B/P Pulse Ox O2 Delivery O2 Flow Rate FiO2 09/25/16 02:36 89 16 134/82 09/24/16 22:57 98.0 97 20 140/82 100 Physical Exam Const: No acute distress. Head: Atraumatic. Eyes: Normal Conjunctiva. ENT: Normal External Ears, Nose and Mouth. Neck: Full range of motion. No meningismus. Resp: Clear to auscultation bilaterally. Cardio: Regular rate and rhythm, no murmurs. Abd: Soft, distended urinary bladder, normal bowel sounds, no rigidity , rebound, CVA tenderness Skin: No petechiae or rashes. Back: No midline or flank tenderness. Ext: No cyanosis, or edema. Neur: Awake and alert. No focal deficit Psych: Normal Mood and Affect. Result Diagram: 09/25/16 0006 09/25/16 0006 Results 24 hrs Laboratory Tests Test 09/24/16 23:45 09/25/16 00:06 Bedside Urine pH (LAB) 5.5 Bedside Urine Protein (LAB) Negative Bedside Urine Glucose (UA) Negative Bedside Urine Ketones (LAB) Negative Bedside Urine Blood Negative Bedside Urine Nitrite (LAB) Negative Bedside Urine Leukocyte Esterase (L Negative White Blood Count 11.510^3/ul Red Blood Count 4.1510^6/ul Hemoglobin 12.1g/dl Hematocrit 34.8% Mean Corpuscular Volume 83.9fl Mean Corpuscular Hemoglobin 29.2pg Mean Corpuscular Hemoglobin Concent 34.8g/dl Red Cell Distribution Width 13.7% Platelet Count 76335^3/UL Mean Platelet Volume 9.9fl Neutrophils % 80.2% Lymphocytes % 12.5% Monocytes % 5.6% Eosinophils % 0.3% Basophils % 0.3% Nucleated Red Blood Cells % 0.0/100WBC Neutrophils # 9.210^3/ul Lymphocytes # 1.410^3/ul Monocytes # 0.610^3/ul Eosinophils # 0.010^3/ul Basophils # 0.010^3/ul Nucleated Red Blood Cells # 0.010^3/ul Sodium Level 141mmol/L Potassium Level 4.1mmol/L Chloride Level 99mmol/L Carbon Dioxide Level 26mmol/L Anion Gap 20 Blood Urea Nitrogen 18mg/dl Creatinine 1.12mg/dl Glucose Level 183mg/dl Calcium Level 8.9mg/dl Total Bilirubin 0.3mg/dl Direct Bilirubin 0.00mg/dl Indirect Bilirubin 0.3mg/dl Aspartate Amino Transf (AST/SGOT) 43IU/L Alanine Aminotransferase (ALT/SGPT) 61IU/L Alkaline Phosphatase 61IU/L Total Protein 7.4g/dl Albumin 4.4g/dl Globulin 3.00g/dl Albumin/Globulin Ratio 1.46 Lipase 575U/L Procedures/MDM MEDICAL MAKING DECISION: The patient is a 66-year-old male, presenting with acute urinary retention. He was treated with a Pham catheter rate of about 2.2 L with spontaneous relief. He was given and instructed to use the leg bag. The differential diagnoses considered include but are not limited to cholelithiasis, cholecystitis, cystitis, pancreatitis, hepatitis, gastritis, peptic ulcer disease, gastric ulcer, appendicitis, diverticulitis, cholangitis, choledocholithiasis, partial small bowel obstruction. Departure Diagnosis: Primary Impression: Retention of urine Additional Impression: Anemia Condition: Good Patient Instructions: Urinary Retention, Male Referrals: RENALDO TATUM MD Additional Instructions: Call Dr Tatum TOMORROW or his urologist Dr. Beebe for an appointment during the next 2-3 days.See the doctor sooner or return here if your condition worsens before your appointment time. JEFFERY KAUFMAN MD Sep 25, 2016 04:02
[2016-09-25] MEDS ORDERED: HYDR-902 PO ×2 (14:11→14:34)
== END 2016-09-25 02:37 | disposition home or self-care (01) ==
LOC: FTE 22:50
DX: R33.9 Retention of urine, unspecified (principal); I10 Essential (primary) hypertension; E11.9 Type 2 diabetes mellitus without complications; D64.9 Anemia, unspecified; Z79.84 Long term (current) use of oral hypoglycemic drugs; Z80.51 Family history of malignant neoplasm of kidney
CPT/HCPCS: 36415; 80053; 81003; 83690; 85025

== ENCOUNTER 2016-09-25 13:38 | Emergency (ER) | payer OTHER ==
[~2016-09-25] VITALS: Ht 172.7 cm; Wt 90.0 kg
[~2016-09-25 13:38] MED LIST changes: +TAMS-14 PO
[2016-09-25 13:46] VITALS: Ht 172.7 cm; Wt 90.0 kg
[2016-09-25] MEDS ORDERED: HYDR-902 PO ×2 (14:11→14:34)
--- NOTE | 2016-09-25 14:11 | ERD ---
ER Documentation Chief Complaint Date/Time DATE: 09/25/16 TIME: 14:08 Chief Complaint bleeding from ozuna's cath HPI This is a 66-year-old male who is here for bleeding around his Ozuna catheter. The patient Ozuna catheter placed yesterday here due to urinary retention. The patient is having good Ozuna output. The patient states that he thought that he was told to remove the catheter this morning himself so he took the catheter and pulled on it with force until he felt a lot of pain and he started to have bleeding around the catheter. He has no abdominal or pelvic patient does not have any active bleeding right now around the catheter. There is no urinary leakage around the catheter. ROS All systems reviewed and are negative except as per history of present illness. Medications Home Meds Active Scripts Tamsulosin Hcl* (Flomax*) 0.4 Mg Cap.er.24h, 0.4 MG PO QPM, #15 CAP Prov:JEFFERY KAUFMAN MD 09/25/16 Reported Medications Acetaminophen* (Acetaminophen*) 500 MG Extra Strength Tablet, 500 MG PO Q4H Y for PAIN AND OR ELEVATED TEMP, TAB 08/13/16 Amlodipine Besylate/Benazepril (Lotrel 10-40 mg Capsule) 1 Each Capsule, 1 EACH PO, CAP 07/28/16 Calcium Carbonate-Vitamin D3 (Calcium 500 + Vit D 400 Tablet) 1 Each Tablet, 1 TAB PO BID, TAB 07/28/16 Gabapentin* (Gabapentin*) 300 Mg Capsule, 300 MG PO BID, #60 CAP 11/11/15 Metformin Hcl (Glucophage) 500 Mg Tablet, 500 MG PO DAILY, #90 TAB 11/11/15 Sitagliptin* (Januvia*) 100 Mg Tablet, 100 MG PO DAILY, #30 TAB 11/11/15 Hydrochlorothiazide (Hydrochlorothiazide) 25 Mg Tablet, 25 MG PO 04/05/13 Allergies Allergies: Coded Allergies: No Known Allergy (Unverified , 09/22/16) PMhx/Soc History of Surgery: Yes (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, HERNIA) Anesthesia Reaction: No Hx Neurological Disorder: No Hx Respiratory Disorders: No Hx Cardiac Disorders: Yes (HTN) Hx Psychiatric Problems: No Hx Miscellaneous Medical Probl: Yes (HX RIGHT KIDNEY CANCER--REMOVED 2007) Hx Alcohol Use: No Hx Substance Use: No Hx Tobacco Use: No FmHx Family History: No coronary disease Physical Exam Vitals Vital Signs Date Time Temp Pulse Resp B/P Pulse Ox O2 Delivery O2 Flow Rate FiO2 09/25/16 13:46 97.8 92 18 148/87 96 Physical Exam Const: Well-developed, well-nourished Head: Atraumatic, normocephalic Eyes: Normal Conjunctiva, PERRLA, EOMI, normal sclera, no nystagmus ENT: Normal External Ears, Nose and Mouth, moist mucus membranes. Neck: Full range of motion. No meningismus, no lymphadenopathy. Resp: Clear to auscultation bilaterally, no wheezing, rhonchi, rales Cardio: Regular rate and rhythm, no murmurs, S1 S2 present Abd: Soft, non tender x 4, non distended. Normal bowel sounds, no guarding or rebound, no pulsitile abdominal masses or bruits, there is some dried blood around the external surface of the catheters goes into the penis. The balloon is still inflated-the catheter will not come out with manual pulling. There is some discomfort with this. Skin: No petechiae or rashes, no ecchymosis , no maculopapular rash Back: No midline or flank tenderness Ext: No cyanosis, or edema, FROM x 4, normal inspection, neurovascularly intact x 4 Neur: Awake and alert, STR 5/5 x 4, sensation intact x 4, no focal findings, cerebellum intact Psych: Normal Mood and Affect Procedures/MDM Patient has some urethral trauma due to pulling on the catheter. We will leave the catheter in place to ensure adequate urinary bladder drainage as well as let the urethra heal. Departure Diagnosis: Primary Impression: Complication of catheter Encounter type: initial encounter Qualified Code: T85.9XXA - Complication of catheter, initial encounter Additional Impression: Urethral trauma Encounter type: initial encounter Qualified Code: S37.30XA - Urethral trauma , initial encounter Condition: Stable Patient Instructions: Emptying and Cleaning Your Urinary Catheter Bag Referrals: NOEL BLEVINS MD (PCP) SANDEEP MONREAL DO Sep 25, 2016 14:11
[2016-09-25] MEDS ORDERED: HYDROCODONE/APAP (10/325) TAB PO ONE (14:30)
== END 2016-09-25 14:55 | disposition home or self-care (01) ==
LOC: E/R 13:38
DX: T83.83XA Hemorrhage due to genitourinary prosthetic devices, implants and grafts, initial encounter (principal); S37.30XA Unspecified injury of urethra, initial encounter; I10 Essential (primary) hypertension; E11.9 Type 2 diabetes mellitus without complications; X58.XXXA Exposure to other specified factors, initial encounter; Y73.8 Miscellaneous gastroenterology and urology devices associated with adverse incidents, not elsewhere classified; Y92.9 Unspecified place or not applicable; Z79.84 Long term (current) use of oral hypoglycemic drugs; Z85.528 Personal history of other malignant neoplasm of kidney
CPT/HCPCS: 99284

== ENCOUNTER 2016-09-27 07:05 | Emergency (ER) | payer OTHER ==
[~2016-09-27] VITALS: Wt 90.0 kg
[~2016-09-27 07:05] MED LIST changes: +HYDR-902 PO
--- NOTE | 2016-09-27 07:51 | ERD ---
ER Documentation Chief Complaint Date/Time DATE: 09/27/16 TIME: 07:51 Chief Complaint sent by pmd to remove ozuna catheter. home s/p cholecystectomy 3 days. HPI This is a 66-year-old male who presents to the emergency department today for catheter removal. Patient stated that he had a cholecystectomy on September 23 and came here the next day because of urinary retention and catheter was placed. Patient states that he tried to take out the catheter himself and had bleeding so he returned on September 25. States he also has some constipation. denies any fevers or chills, abdominal pain. States his only pain is in his penis. ROS All systems reviewed and are negative except as per history of present illness. Medications Home Meds Active Scripts Docusate Sodium* (Colace*) 100 Mg Capsule, 100 MG PO TID, #30 CAP Prov:LUIS ALFREDO BAZZI PA-C 09/27/16 Polyethylene Glycol* (Miralax*) 17 Gm Powd.pack, 17 GM PO DAILY, #15 Prov:LUIS ALFREDO BAZZI PA-C 09/27/16 Cephalexin* (Keflex*) 500 Mg Capsule, 500 MG PO QID for 7 Days, CAP Prov:LUIS ALFREDO BAZZI PA-C 09/27/16 Hydrocodone/Acetaminophen (Reno 10-325 Tablet) 1 Each Tablet, 1 TAB PO Q6H Y for PAIN, #20 TAB Prov:SANDEEP MONREAL DO 09/25/16 Tamsulosin Hcl* (Flomax*) 0.4 Mg Cap.er.24h, 0.4 MG PO QPM, #15 CAP Prov:JEFFERY KAUFMAN MD 09/25/16 Reported Medications Acetaminophen* (Acetaminophen*) 500 MG Extra Strength Tablet, 500 MG PO Q4H Y for PAIN AND OR ELEVATED TEMP, TAB 08/13/16 Amlodipine Besylate/Benazepril (Lotrel 10-40 mg Capsule) 1 Each Capsule, 1 EACH PO, CAP 07/28/16 Calcium Carbonate-Vitamin D3 (Calcium 500 + Vit D 400 Tablet) 1 Each Tablet, 1 TAB PO BID, TAB 07/28/16 Gabapentin* (Gabapentin*) 300 Mg Capsule, 300 MG PO BID, #60 CAP 11/11/15 Metformin Hcl (Glucophage) 500 Mg Tablet, 500 MG PO DAILY, #90 TAB 5/10/16 Sitagliptin* (Januvia*) 100 Mg Tablet, 100 MG PO DAILY, #30 TAB 11/11/15 Hydrochlorothiazide (Hydrochlorothiazide) 25 Mg Tablet, 25 MG PO 04/05/13 Discontinued Scripts Hydrocodone/Acetaminophen (Reno 10-325 Tablet) 1 Each Tablet, 1 TAB PO Q6H Y for PAIN, #20 TAB Prov:RYAN MONREALJUNETavo AsencioNta DO 09/25/16 Allergies Allergies: Coded Allergies: No Known Allergy (Unverified , 09/27/16) PMhx/Soc History of Surgery: Yes (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 Neck: Full range of motion..~ No meningismus. Resp: Clear to auscultation bilaterally Cardio: Regular rate and rhythm, no murmurs Abd: Soft, non tender, non distended. Normal bowel sounds Skin: No petechiae or rashes Neur: Awake and alert Psych: Normal Mood and Affect Results 24 hrs Laboratory Tests Test 09/27/16 09:04 Bedside Urine pH (LAB) 7.0 Bedside Urine Protein (LAB) 2+ Bedside Urine Glucose (UA) Negative Bedside Urine Ketones (LAB) Negative Bedside Urine Blood 3+ Bedside Urine Nitrite (LAB) Negative Bedside Urine Leukocyte Esterase (L 1+ Procedures/MDM This 66-year-old male who presents to the emergency department today for Ozuna catheter removal. Patient is status post cholecystectomy by Dr. Cardenas on September 23. On September 24 patient was having urinary retention was seen here in the emergency department and had a Ozuna catheter placed. On September 25 patient thought he could remove the catheter himself and started noticing bleeding and therefore returned for a complication of his catheter. A leg bag was placed at that time. Patient stated that he was instructed to return here to have his Ozuna catheter removed. Today on physical exam patient does not have any abdominal pain. His only pain complaint is in his penis. I did remove the Ozuna catheter and patient was able to urinate. Patient will be given a prescription for Keflex and the urine was sent for culture. UA shows 1+ leukocyte esterase and 3+ blood. Hematuria likely secondary to Ozuna catheter urine was sent for culture Patient also indicated he is had some constipation since his surgery. He has no abdominal pain on physical exam and I do not feel the patient requires a CT scan at this time to rule out ileus or bowel obstruction. He has had no nausea or vomiting. Patient was given a prescription for MiraLAX and Colace. He may continue to take his Tylenol for pain that he was prescribed. Patient did not have a follow-up visit set up for postsurgical evaluation. I have explained to the patient the importance of setting up an appointment today. At this time the patient is stable for discharge and outpatient management. Patient should follow up with their PCP in the next 1-2 days. They may return to the emergency department sooner for any persistent or worsening of symptoms. Patient and understood and agreed with the plan. Departure Diagnosis: Primary Impression: Encounter for urinary catheter Additional Impression: UTI (urinary tract infection) Urinary tract infection type: site unspecified Hematuria presence: with hematuria Qualified Code: N39.0 - Urinary tract infection with hematuria, site unspecified Condition: LUIS ALFREDO Baeza PA-C Sep 27, 2016 07:51
[2016-09-27 09:04] LABS: URINE BLOOD (Dip) POC 3+ (NEGATIVE)
[2016-09-27] MEDS ORDERED: CEPH-443 PO (09:40)
[2016-09-27] MEDS ORDERED: POLY17PO6 PO (09:41)
[2016-09-27] MEDS ORDERED: DOCU-144 PO (09:41)
[2016-09-27 09:55] VITALS: BP 112/70; PULSE 78; RESP 20; TEMP 98.2
== END 2016-09-27 09:55 | disposition home or self-care (01) ==
LOC: FTE 07:05
DX: Z46.6 Encounter for fitting and adjustment of urinary device (principal); N39.0 Urinary tract infection, site not specified; I10 Essential (primary) hypertension; E11.9 Type 2 diabetes mellitus without complications; Z85.528 Personal history of other malignant neoplasm of kidney; Z79.84 Long term (current) use of oral hypoglycemic drugs
CPT/HCPCS: 81003; 87086; 99283

== ENCOUNTER 2016-10-20 13:51 | Outpatient (CLI) | payer OTHER ==
[~2016-10-20] VITALS: Ht 177.8 cm; Wt 93.6 kg
[~2016-10-20 13:51] MED LIST changes: +CEPH-443 PO; +DOCU-144 PO; +POLY17PO6 PO
[2016-10-20 14:02] VITALS: BP 104/65; PULSE 98; RESP 18; Ht 177.8 cm; Wt 93.6 kg
--- NOTE | 2016-10-20 14:56 | PN ---
Date/Time of Note Date/Time of Note DATE: 10/20/16 TIME: 14:53 Assessment/Plan Assessment/Plan Assessment/Plan [facility] Progress Note Date of Service: 10/20/16 Today's Impression & Plan: Overall doing well post op without major issues. No major wound problems. Unrelated to surgery, patient reported With above assessment, I've recommended the following for today: 1. F/u with PCP 2. F/u with us prn 3. F/u with urology re reported mass in L testicle and overall renal function (s /p R nephrectomy) Thank you again for your great care of this very pleasant patient and wonderful family. If there are any questions, please feel free to call me at [phone]. TOTAL VISIT TIME: 20 minutes of which more than half was spent in [id number] discussion with the patient, possibly including family, as well as coordination of care between multiple physicians and providers. Disclaimer: Inadvertent spelling or grammatical errors are likely due to EHR/ dictation software use and do not reflect on the overall quality of patient care. Updated Clinical Summary: The patient is a very pleasant 66-year-old gentleman well known to me from our initial visit with him as early July 2015 for treatment of a large right- sided flank hernia that he eventually had a repair for in December 2015 with subsequent followup visits with me. This was in conjunction with Dr. Landeros who had originally seen him for surgical issues. He also has comorbidities that are multiple and include hypertension, prior kidney disease requiring surgery that led to the hernia on the right side, diabetes, history of rectal bleeding and a number of other issues. He was noted to have cholelithiasis that may have been symptomatic, but because of the use of mesh during his hernia repair we elected not to take his gallbladder out in order to minimize chance of infection. I had talked to him and family about possibly removing the gallbladder at a later time if the pain persisted. The patient continues to have vague abdominal pain, some of which can be explained by the incisional hernia that he had on the right side and the presence of current mesh and his relatively recent repair. Some of his pain; however, could come from his gallbladder and for this reason, he was sent to us for reevaluation. Note that he was recently evaluated at an emergency department at [facility] for pain and a CT scan of the abdomen and pelvis was done which showed presence of stone in the gallbladder and recommendation was made for the patient to arrange for an outpatient evaluation. Incidentally, the right incisional hernia repair is holding very well and there is no evidence of any recurrence. Comorbidities: 1. Incisional hernia from a right nephrectomy, status post repair 12/12/2015 with mesh. 2. Hypertension. 3. Diabetes mellitus. 4. History of rectal bleeding. 5. History of small sigmoid colon polyp removed 04/05/2013 which was benign. 6. Internal hemorrhoids. 7. Arthritis. 8. History of left-sided chest pain evaluated 03/07/2011 at [facility]. 9. History of renal insufficiency. 10. BMI 30.2, (previously 29.9 in July 2015). 11. Status post right nephrectomy with possible renal cell carcinoma leading to complication of an incisional hernia that was repaired subsequently as above. 12. Colonoscopy with polyp removal as above 03/27/2011. 13. S/p lap awilda 09/27/16 at [facility] for chronic cholecystitis, focal cholesterolosis and cholelithiasis Subjective: No major events or complaints; no abd pain and under control with medications; no n/v/d; no sob or cp; + flatus; + BM and normal; + activity; reported issues post op with visits to ED for urinary retention, needing Pahm insertion and subsequent visit for bleeding from penis after removal of the catheter. Also reports L testicular mass. Objective: Vitals: See below Exam: GENERAL: On exam, the patient was sitting in a chair and appeared to be comfortable and in no acute distress. ABDOMEN: Soft, nontender and nondistended. Incisions are clean, dry and intact without any evidence of erythema, edema, discharge, or hernia. There are no peritoneal signs or guarding. SKIN: Skin appears to be pink and feels warm to touch. NEUROLOGIC: Patient is awake, alert, and follows commands appropriately. Exam/Review of Systems Vital Signs Vitals Vital Signs Date Time Temp Pulse Resp B/P Pulse Ox O2 Delivery O2 Flow Rate FiO2 10/20/16 14:02 98.3 98 18 104/65 95 Room Air COREY ALVARADO M.D. Oct 20, 2016 14:56
== END 2016-10-20 16:30 | disposition home or self-care (01) ==
LOC: HPC 13:51
PROVIDERS: ATTEND Transplant Surgery
DX: Z09 Encounter for follow-up examination after completed treatment for conditions other than malignant neoplasm (principal); Z90.5 Acquired absence of kidney; K64.8 Other hemorrhoids; I10 Essential (primary) hypertension; E11.9 Type 2 diabetes mellitus without complications; K80.10 Calculus of gallbladder with chronic cholecystitis without obstruction; Z87.19 Personal history of other diseases of the digestive system
CPT/HCPCS: G0463

== ENCOUNTER 2018-12-06 08:33 | Emergency (ER) | payer OTHER ==
[~2018-12-06] VITALS: Ht 172.7 cm; Wt 93.8 kg
[~2018-12-06 08:33] MED LIST changes: -CEPH-443 PO; -HYDR-902 PO; +SITA100T11 PO; -SITA100T8 PO
[2018-12-06 08:40] VITALS: Ht 172.7 cm; Wt 93.8 kg
[2018-12-06] MEDS ORDERED: ACETAMINOPHEN 500 MG TAB PO STA (08:47)
[2018-12-06] MEDS ORDERED: SODIUM CHLORIDE 0.9% 1L BAG IV* STA (08:47)
[2018-12-06] MEDS ORDERED: KETOROLAC 15 MG INJ IV STA (08:53)
[2018-12-06] MEDS ORDERED: AZITHROMYCIN 500MG/NS (PMX) 250 ML IV STA (08:53)
[2018-12-06] MEDS ORDERED: CEFTRIAXONE 1 GM/50 ML (PMX) 50 ML IVPB STA (08:53)
[2018-12-06] MEDS ORDERED: AMOX500C2 PO (11:14)
[2018-12-06] MEDS ORDERED: ALBU18HF INHALATION (11:14)
[2018-12-06] MEDS ORDERED: IBUP800T48 PO (11:14)
[2018-12-06] MEDS ORDERED: AZIT250T PO (11:14)
[2018-12-06 11:17] VITALS: BP 123/85; PULSE 88; RESP 18
--- NOTE | 2018-12-06 11:22 | ERD ---
ER Documentation Chief Complaint Chief Complaint fever, body pain, cough since tuesday HPI This is a 68-year-old gentleman who presents to the emergency room with several days of symptoms that include cough congestion and body pain. The patient has a fever, diffuse myalgias that are moderate. Associated cough that is slightly productive. The patient is noted to have a fever and tachycardia triage. He denies any chest pain, no pleuritic pain. No recent travel, sick contacts, antibiotics. Patient is a non-smoker. During the patient's encounter translation services were utilized Language: Telugu Source: Family video ROS All systems reviewed and are negative except as per history of present illness. Medications Home Meds Active Scripts Amoxicillin* (Amoxicillin*) 500 Mg Cap, 1000 MG PO TID for 7 Days, CAP Prov:SHANEL PARKER MD 12/06/18 Azithromycin* (Zithromax*) 250 Mg Tablet, 250 MG PO DAILY for 4 Days, TAB Prov:SHANEL PARKER MD 12/06/18 Ibuprofen* (Motrin*) 800 Mg Tab, 800 MG PO Q6H PRN for PAIN AND OR ELEVATED TEMP, #30 TAB Prov:SHANEL PARKER MD 12/06/18 Albuterol Sulfate* (Ventolin HFA*) 18 Gm Hfa.aer.ad, 2 PUFF INHALATION Q4H, #1 INHALER Prov:SHANEL PARKER MD 12/06/18 Docusate Sodium* (Colace*) 100 Mg Capsule, 100 MG PO TID, #30 CAP Prov:LUIS ALFREDO BAZZI PA-C 09/27/16 Polyethylene Glycol* (Miralax*) 17 Gm Powd.pack, 17 GM PO DAILY, #15 Prov:LUIS ALFREDO BAZZI PA-C 09/27/16 Tamsulosin Hcl* (Flomax*) 0.4 Mg Cap.er.24h, 0.4 MG PO QPM, #15 CAP Prov:JEFFERY KAUFMAN MD 09/25/16 Reported Medications Acetaminophen* (Acetaminophen*) 500 MG Extra Strength Tablet, 500 MG PO Q4H PRN for PAIN AND OR ELEVATED TEMP, TAB 08/13/16 Amlodipine Besylate/Benazepril (Lotrel 10-40 mg Capsule) 1 Each Capsule, 1 EACH PO, CAP 07/28/16 Calcium Carbonate-Vitamin D3 (Calcium 500 + Vit D 400 Tablet) 1 Each Tablet, 1 TAB PO BID, TAB 07/28/16 Gabapentin* (Gabapentin*) 300 Mg Capsule, 300 MG PO BID, #60 CAP 11/11/15 Metformin Hcl (Glucophage) 500 Mg Tablet, 500 MG PO DAILY, #90 TAB 11/11/15 Sitagliptin* (Januvia*) 100 Mg Tablet, 100 MG PO DAILY, #30 TAB 11/11/15 Hydrochlorothiazide (Hydrochlorothiazide) 25 Mg Tablet, 25 MG PO 04/05/13 Allergies Allergies: Coded Allergies: No Known Allergy (Unverified , 12/06/18) PMhx/Soc History of Surgery: Yes (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, HERNIA; GALLBLADDER SURGERY) Anesthesia Reaction: No Hx Neurological Disorder: No Hx Respiratory Disorders: No Hx Cardiac Disorders: Yes (HTN) Hx Psychiatric Problems: No Hx Miscellaneous Medical Probl: Yes (HX RIGHT KIDNEY CANCER--REMOVED 2007) Hx Alcohol Use: No Hx Substance Use: No Hx Tobacco Use: No FmHx Family History: No diabetes Physical Exam Vitals Vital Signs Date Temp Pulse Resp B/P (MAP) Pulse Ox O2 O2 Flow FiO2 Time Delivery Rate 12/06/18 98.7 92 18 130/80 96 Room Air 09:53 (97) 12/06/18 101.4 111 28 152/82 96 08:40 (105) Physical Exam General: Well developed, well nourished, no acute distress Head: Normocephalic, atraumatic. Eyes: Pupils equally reactive, EOM intact ENT: Moist mucous membranes Neck: Supple, no lymphadenopathy Respiratory: Scant wheeze but good aeration, no distress Cardiovascular: Slight tachycardia, no murmurs, rubs, or gallops Abdominal: Soft, non-tender, non-distended, no peritoneal signs : Deferred MSK: No edema, no unilateral swelling, 5/5 strength Neurologic: Alert and oriented, moving all extremities, normal speech, no focal weakness, no cerebellar signs Skin: No rash Psych: Normal mood Result Diagram: 12/06/18 0900 12/06/18 0900 Results 24 hrs Laboratory Tests Test 12/06/18 08:55 12/06/18 09:00 12/06/18 09:10 12/06/18 10:38 POC Venous Lactate 1.3 mmol/L White Blood Count 10.7 10^3/ul Red Blood Count 4.42 10^6/ul Hemoglobin 12.5 g/dl Hematocrit 36.4 % Mean Corpuscular 82.4 fl Volume Mean Corpuscular 28.3 pg Hemoglobin Mean Corpuscular 34.3 g/dl Hemoglobin Concent Red Cell 12.9 % Distribution Width Platelet Count 245 10^3/UL Mean Platelet 9.6 fl Volume Immature 0.300 % Granulocytes % Neutrophils % 74.8 % Lymphocytes % 15.5 % Monocytes % 6.6 % Eosinophils % 2.5 % Basophils % 0.3 % Nucleated Red Blood 0.0 /100WBC Cells % Immature 0.030 10^3/ul Granulocytes # Neutrophils # 8.0 10^3/ul Lymphocytes # 1.7 10^3/ul Monocytes # 0.7 10^3/ul Eosinophils # 0.3 10^3/ul Basophils # 0.0 10^3/ul Nucleated Red Blood 0.0 10^3/ul Cells # Prothrombin Time 12.9 Sec Prothrombin Time 1.0 Ratio INR International 0.96 Normalized Ratio Activated 28.1 Sec Partial Thromboplas t Time Sodium Level 139 mmol/L Potassium Level 3.9 mmol/L Chloride Level 100 mmol/L Carbon Dioxide 29 mmol/L Level Anion Gap 10 Blood Urea Nitrogen 17 mg/dl Creatinine 1.13 mg/dl Est Glomerular > 60 mL/min Filtrat Rate mL/min Glucose Level 184 mg/dl Calcium Level 9.4 mg/dl Total Bilirubin 0.9 mg/dl Direct Bilirubin 0.00 mg/dl Indirect Bilirubin 0.9 mg/dl Aspartate Amino 30 IU/L Transf (AST/SGOT) Alanine 36 IU/L Aminotransferase (A LT/SGPT) Alkaline 71 IU/L Phosphatase Troponin I < 0.012 ng/ml Total Protein 8.0 g/dl Albumin 4.7 g/dl Globulin 3.30 g/dl Albumin/Globulin 1.42 Ratio Urine Color YELLOW Urine Clarity CLEAR Urine pH 8.0 Urine Specific 1.009 Arnold Urine Ketones NEGATIVE mg/dL Urine Nitrite NEGATIVE mg/dL Urine Bilirubin NEGATIVE mg/dL Urine Urobilinogen NEGATIVE mg/dL Urine Leukocyte NEGATIVE Thao/ul Esterase Urine Hemoglobin NEGATIVE mg/dL Urine Glucose NEGATIVE mg/dL Urine Total Protein NEGATIVE mg/dl Lactic Acid Level 1.0 mmol/L Current Medications Medications Dose Sig/Alberto Start Time Status Last (Trade) Ordered Route PRN Stop Time Admin Dose Reason Admin Sodium 2,050 ml BOLUS OVER 2 12/06/18 DC 12/06/18 Chloride HOURS STAT 08:47 12/06/18 09:13 (NS) IV* 08:49 1,000 mg ONCE STAT 12/06/18 DC 12/06/18 Acetaminophen PO 08:47 12/06/18 09:12 (Tylenol 08:49 Tab) Azithromycin 250 ml @ ONCE STAT 12/06/18 DC 12/06/18 250 mls/hr IV 08:53 12/06/18 09:59 09:52 Ceftriaxone 50 ml @ ONCE STAT 12/06/18 DC 12/06/18 Sodium 100 mls/hr IVPB 08:53 12/06/18 09:13 09:22 Ketorolac 15 mg ONCE STAT 12/06/18 DC 12/06/18 Tromethamine IV 08:53 12/06/18 09:13 (Toradol) 08:54 Procedures/MDM EKG, MONITORS, & DIAGNOSTIC IMAGING: EKG: I reviewed and interpreted a 12-lead EKG. Rhythm: Normal sinus rhythm ST Changes: No contiguous ST segment elevations T waves: No contiguous T wave inversions Impression: No evidence of acute cardiac ischemia Chest x-ray: I reviewed and interpreted a 1 view of the chest Mediastinum: No enlargement Cardiac silhouette: No cardiomegaly Airspace: Clear lung benoit bilaterally without evidence of pneumothorax Bones: No evidence of fracture LAB INTERPRETATION: I reviewed the laboratory testing and it shows no evidence of acute process MEDICAL DECISION MAKING: The patient's presentation is consistent with possible community acquired pneumonia. The patient has fever and tachycardia with Sirs, potential for possible sepsis. A code sepsis was initiated. Viral process is more likely though given the patient's appearance. He is otherwise well-appearing without signs or symptoms concerning for systemic illness. ER COURSE: * The patient was given a breathing treatment and broad-spectrum antibiotics in the form of subtraction azithromycin to cover community acquired pneumonia. However his laboratory testing and diagnostic imaging is very reassuring. The patient is feeling much better and vital signs have since normalized. * At this time despite the patient's age of 68 the patient is otherwise well- appearing and will likely do well on an outpatient basis. I believe empiric antibiotics to cover community acquired pneumonia would be reasonable spite normal laboratory testing and diagnostic imaging. Early pneumonia cannot be ruled out. Return precautions were discussed and understood and the patient and family feels very comfortable with this plan. CONSULTATION: None DISPOSITION PLAN: The patient does not have an identifiable emergent medical condition that warrants inpatient hospitalization at this time. The patient is deemed safe for discharge with outpatient follow-up. We discussed follow up with the patient's primary care doctor within 24 to 48 hours as needed. We also discussed return to the emergency room for worsening symptoms or worsening condition. Outpatient referral: None required Discharge Medications: Ventolin, azithromycin, amoxicillin, Motrin Departure Diagnosis: Primary Impression: Lower respiratory tract infection Condition: Good Patient Instructions: Pneumonia (Adult) Referrals: [facility] Usted se levine hecho un examen mdico de control que le indica que no est en lilliam condicin que requiera tratamiento urgente en el Departamento de Emergencia. Un estudio ms profundo y el tratamiento de lane condicin pueden esperar sin ningn riesgo hasta que usted sea atendida/o en el consultorio de lane mdico o lilliam cl trell. Es responsabilidad suya arreglar lilliam ed para el seguimiento del crys. MANEJO DE CONDICIONES NO URGENTES EN EL FUTURO 1) Si usted tiene un mdico de atencin primaria: Usted debera llamar a lane mdico de atencin primaria antes de venir al departamento de emergencia. Despus de las horas de consultorio, lane doctor o lane asociado/a est disponible por telfono. El mdico o enfermero de lavell en el servicio telefnico puede asesorarle por juanita medio para atender el problema, o crys contrario se puede programar lilliam ed. 2) Si usted no tiene un mdico de atencin primaria: Llame al mdico o clnica de referencia que aparece abajo clary las horas de consultorio para hacer lilliam ed para que le vean. CLINICAS: [facility] [phone] [facility] [phone] [facility] [phone] [place] [id number] [phone] [facility] [phone] [address] [facility] [phone] [address] [facility] () Usted se levine hecho un examen mdico de control que le indica que no est en lilliam condicin que requiera tratamiento urgente en el Departamento de Emergencia. Un estudio ms profundo y el tratamiento de lane condicin pueden esperar sin ningn riesgo hasta que usted sea atendida/o en el consultorio de lane mdico o lilliam clnica. Es responsabilidad suya arreglar lilliam ed para el seguimiento del crys. MANEJO DE CONDICIONES NO URGENTES EN EL FUTURO 1) Si usted tiene un mdico de atencin primaria: Usted debera llamar a lane mdico de atencin primaria antes de venir al departamento de emergencia. Despus de las horas de consultorio, lane doctor o lane asociado/a est disponible por telfono. El mdico o enfermero de lavell en el servicio telefnico puede asesorarle por juanita medio para atender el problema, o crys contrario se puede programar lilliam ed. 2) Si usted no tiene un mdico de atencin primaria: Llame al mdico o condado institucions de referencia que aparece abajo clary las horas de consultorio para hacer lilliam ed para que le vean. SI USTED NO PUEDE PAGAR PARA LILY UN MEDICO puede ir a: [facility] [id number] [place] [address] [facility] [address] [place] [address] [facility] [address] [place] [address] [facility] [address] [place], [place] [id number] Additional Instructions: Llame al doctor MAANA y yamilka lilliam ED PARA DENTRO DE 2-3 MIKE.Dgale a la secretaria que nosotros le instruimos hacer esta ed.Avise o llame si lane condicin se empeora antes de la ed. Regresa aqui si peor o no mejor. SHANEL PARKER MD Dec 06, 2018 11:22
== END 2018-12-06 11:40 | disposition home or self-care (01) ==
LOC: E/R 08:33
DX: J06.9 Acute upper respiratory infection, unspecified (principal); I10 Essential (primary) hypertension; E11.9 Type 2 diabetes mellitus without complications; Z79.84 Long term (current) use of oral hypoglycemic drugs; Z85.528 Personal history of other malignant neoplasm of kidney
CPT/HCPCS: 36415; 71045; 80053; 81003; 83605; 84484; 85025; 85610; 85730; 87040; 87086; 93005; 96365; 96367; 96375; 99285; J0456; J0696; J1885; J7030